=== PATIENT | female | born 1940 | race Caucasian/White ===

== ENCOUNTER 2017-02-16 07:41 | Day surgery (SDC) | payer OTHER ==
--- NOTE | 2017-02-14 11:44 | HP ---
Past Medical History - Admission Chief Complaint: Postmenopausal bleeding History of Present Illness: 76 year old with history of staining one month ago. She was seen by her Primary care, Dr. Diaz who did dipstick was positive for blood. She was treated with antibiotics and referred to urology. Was told that subsequent urine studies were negative. One week later, she noticed vaginal bleeding. She was seen on 02/06/17 and on exam there was blood present in the cervical os after insertion of cytobrush. A pap smear was performed at that time and revealed Atypical Glandular cells. Previous pap smears since 1996 were always negative. 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 Bilateral ovaries were not able to be seen. History Source: Patient Limitations to Obtaining History: No Limitations - Past Medical History ...: 2 ...Para: 2 - Past Surgical History Hx Myomectomy: No Hx Transabdominal Cerclage: No Additional Surgical History: 08/12/2010 D and C for endometrial polyp. 1996 Cone Biopsy with no residual carcinoma in situ - Smoking History Smoking history: Former smoker Have you smoked in the past 12 months: No - Alcohol/Substance Use Hx Alcohol Use: Yes (Social) History of Substance Use: reports: None - Social History Usual Living Arrangement: Yes: With Spouse Home Medications - Allergies Allergies/Adverse Reactions: Allergies Allergy/AdvReac Type Severity Reaction Status Date / Time No Known Allergies Allergy Verified 02/14/17 11:47 Family Disease History - Family Disease History Other Family History: No breast, colon, home support worker cancer Review of Systems - Review of Systems Constitutional: reports: No Symptoms HENT: reports: No Symptoms Neck: reports: No Symptoms Cardiovascular: reports: No Symptoms Respiratory: reports: No Symptoms Gastrointestinal: reports: No Symptoms, Other (No rectal bleeding.) Genitourinary: reports: Discharge, Frequency, Incontinence Breasts: reports: No Symptoms Reported Musculoskeletal: reports: Back Pain Neurological: reports: No Symptoms Endocrine: reports: No Symptoms Psychiatric: reports: Anxiety (Severe anziety) Physical Exam-OFFSET PRINTER Constitutional: Yes: Obese Eyes: Yes: WNL Neck: Yes: WNL, Supple, Trachea Midline Cardiovascular: Yes: WNL, Regular Rate and Rhythm Respiratory: Yes: WNL, Regular, CTA Bilaterally Gastrointestinal: Yes: WNL, Soft, Abdomen, Obese ...Rectal Exam: Yes: WNL Pelvis: Yes: WNL External Genitalia: Yes: Normal Vaginal Exam: Yes: Normal Cervix: Yes: Normal, Bleeding Uterus: Yes: Normal, Anteverted Adnexa: Not Palpable: Bilateral Breast(s): Yes: WNL Musculoskeletal: Yes: WNL Extremities: Yes: WNL Edema: No Neurological: Yes: WNL, Alert, Oriented Psychiatric: Yes: Other (Anxious) Imaging - Results Ultrasound: Report Reviewed (Ill defined thickened endometrium.) Assessment/Plan Obesity Hypertension Postmenopausal bleeding Thickened endometrium Atypical Glandular cell on pap smear. D and C with Hysteroscopy on 02/16/2017
[2017-02-15 09:46] VITALS: BMI 48.6
[2017-02-16] MEDS ORDERED: ACETAMINOPHEN 325 MG TABLET (FP) PO PRN ×2 (08:58→10:25)
[2017-02-16] MEDS ORDERED: ONDANSETRON 4 MG/2 ML VIAL IVPUSH PRN (08:58)
[2017-02-16] MEDS ORDERED: ACETAMINOPHEN 1000 MG/100 ML VIAL (NON FORMULARY) IVPB ONE ×2 (08:58→10:35)
[2017-02-16] MEDS ORDERED: oxyCODONE HCL 5 MG TABLET PO PRN (08:58)
[2017-02-16] MEDS ORDERED: LACTATED RINGERS SOLUTION 1,000 ML IV SCH (09:00)
[2017-02-16] MEDS ORDERED: MIDAZOLAM HCL 2 MG/2 ML SINGLE DOSE VIAL ONE (09:17)
[2017-02-16] MEDS ORDERED: PROPOFOL 20 ML ONE (09:17)
[2017-02-16] MEDS ORDERED: LIDOCAINE HCL/PF 2% SDV 5ML VIAL ONE (09:17)
--- NOTE | 2017-02-16 09:25 | HP ---
History & Physical Update - History History: Change (see notes) (Explained pap smear revealed atypical cells. Discussed colposcopy and endocervcal curettage.) - Physical Physical: No Change - Assessment Assessment: No Change (AYLIN Pap smear) - Plan Plan: No Change (Colposcopy and endocervical curettage)
[2017-02-16] MEDS ORDERED: IBUPROFEN 400 MG TABLET (FP) PO PRN (10:25)
--- NOTE | 2017-02-16 11:01 | OP ---
DATE OF OPERATION: 02/16/2017 PREOPERATIVE DIAGNOSIS: Postmenopausal bleeding, Atypical Glandular cells on pap smear. POSTOPERATIVE DIAGNOSIS: Postmenopausal bleeding, Atypical Glandular cells on pap smear plus polypoid tissue, endocervix and lower uterine segment. PROCEDURE: Examination under anesthesia, colposcopy, endocervical curettage, and dilatation and curettage of endometrium SURGEON: Sandeep Burkett MD ANESTHESIA: General. ANESTHESIOLOGIST: Amanda Adam MD SPECIMEN: Endocervical polypoid tissue and lower uterine segment endometrial tissue. BLOOD LOSS: 5 mL. FLUIDS: 400 mL. DRAINS: None. DESCRIPTION OF PROCEDURE: Under general anesthesia, the patient was placed in the dorsal lithotomy position, prepped and draped in the usual sterile manner. Pelvic examination was performed revealing a uterus that was small, adnexa unable to be palpated. The cervix was firm, flushed with vaginal vault. At this point, the colposcopy was performed. A bivalve speculum was then used to exposure. Acetic acid was utilized. Cervix was flushed with the vaginal vault. Squamocolumnar junction was unable to be visualized. Polypoid tissue was seen at the opening of the cervical os. An ECC was done, and then polypoid tissue was obtained. With this completed, anterior lip of the cervix was grasped with a sharp-tooth tenaculum. The cervical canal was gradually dilated. There was resistance noted and upon dilation of the endocervical canal, polypoid tissue was noted again. Due to the amount of polypoid tissue, it was elected to defer hysteroscopy at this point. The endocervical canal was then dilated, curettage was performed of the lower uterine segment, and polypoid tissue was obtained. The tenaculum was removed. No bleeding was noted. Patient was brought to the recovery room in satisfactory condition. Zeynep [id number] MTDD
[2017-02-16 11:19] VITALS: TEMP 98
[2017-02-16 13:28] VITALS: BP 120/61; PULSE 64
--- NOTE | 2017-02-19 13:19 | PATH ---
Surgical Pathology Report Patient Name: TIFFANIE SONG [facility]. Rec. #: [id number] /Age/Gender: 1940 (Age: 76) / F Account: [id number] Location: [facility] SURGICAL Taken: 02/16/2017 Received: 02/16/2017 Reported: 02/19/2017 Physicians: Sandeep Burkett M.D. Specimen(s) Received A: ENDOCERVICAL CURETTINGS B: ENDOMETRIAL CURETTINGS Clinical History 76 year old spotting for 4 weeks Pap AYLIN 1996- cone bx BIMAL III; no residual on cone 2009 D&C polyp Postmenopausal bleeding Final Diagnosis A. 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 B. ENDOMETRIUM, CURETTAGE: ENDOMETRIAL ENDOMETRIOID ADENOCARCINOMA, FIGO GRADE 1. Comment: DNA mismatch repair (MMR) protein expression analysis by IHC is ordered; results will be reported in an addendum. The case was discussed with Dr. Burkett on 02/19/17. Electronically Signed Manohar Rinaldi M.D. Addendum Reported: 02/20/2017 Addendum Diagnosis DNA Mismatch Repair (MMR) protein expression [facility] [place] [place] ([id number]) on block A1 and interpreted 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 This result may be seen in sporadic MSI-H tumors and MSI-H tumors associated with HNPCC (Benitez syndrome). MLH1 promoter methylation analysis is pending; results will be reported in an addendum. Manohar Rinaldi M.D. Gross Description A. Received in formalin labeled "endocervical curettings" is a 1.3 x 0.8 x 0.3 cm pink-lange, polypoid portion of soft tissue admixed with a 1.0 x 0.8 x 0.3 cm aggregate of lange soft tissue fragments. The specimen is submitted in toto in one cassette. B. Received in formalin labeled "endometrial curettings" is a 1.8 x 1.6 x 0.3 cm aggregate of lange soft tissue fragments. The formalin is filtered and the specimen is entirely submitted in one cassette. 02/16/201702/16/2017
== END 2017-02-16 13:00 | disposition home or self-care (01) ==
LOC: JASU-SURG 07:41
PROVIDERS: ATTEND Obstetrics & Gynecology
PROC: 0UBC7ZX Excision of Cervix, Via Natural or Artificial Opening, Diagnostic (ICD-10-PCS; 2017-02-16)
PROC: 0UDB7ZX Extraction of Endometrium, Via Natural or Artificial Opening, Diagnostic (ICD-10-PCS; principal; 2017-02-16 09:30)
DX: N95.0 Postmenopausal bleeding (principal); R87.618 Other abnormal cytological findings on specimens from cervix uteri
CPT/HCPCS: 88305-TC; 94760